=== PATIENT | female | born 1985 ===

== ENCOUNTER 2018-11-02 07:34 | Inpatient (IN) | payer BC ==
[2018-11-02 08:57] VITALS: BMI 27.0
[2018-11-02 09:17] LABS: SQUAMOUS EPITHIAL 9 /hpf (0-5); URINE BACTERIA RARE (<OCC); URINE BILIRUBIN NEGATIVE (NEGATIVE); URINE BLOOD NEGATIVE (NEGATIVE); URINE CLARITY Hazy (Clear); URINE COLOR Yellow (YELLOW); URINE GLUCOSE (UA) NORMAL (Normal); URINE LEUKOCYTE ESTERASE NEG Leu/uL (Negative); URINE PROTEIN NEGATIVE (NEGATIVE); URINE UROBILINOGEN NORMAL mg/dL (0.2-1.0)
[2018-11-02] MEDS ORDERED: Sodium Citrate/Citric Acid 15 ml Sol PO ONE (09:17)
[2018-11-02] MEDS ORDERED: ceFAZolin 2 GM in Sodium Chloride 0.9% 100 ML IVPB ONE (09:17)
[2018-11-02] MEDS ORDERED: Lactated Ringer's 1,000 ML IV ONE (09:17)
[2018-11-02] MEDS ORDERED: Morphine 1 mg/ml preservative-free Inj(Duramorph) ONE (09:53)
[2018-11-02] MEDS ORDERED: EPINEPHrine 1 mg/ml (1:1000) Inj ONE (09:54)
[2018-11-02] MEDS ORDERED: Bupivacaine HCl 15 mg/2 ml Spinal Inj ONE (09:55)
[2018-11-02 10:14] LABS: BASO % 0.3 % (0.0-2.0); EOS % 0.4 % (0.0-4.0); HEMOGLOBIN 11.7 g/dL (11.0-16.0); LYMPH # 1.4 K/uL (1.0-4.3); LYMPH % 20.2 % (20.0-40.0); MEAN CELL VOLUME 90.3 fL (81.0-99.0); MEAN CORPUSCULAR HGB CONC 34.3 g/dL (33.0-37.0); MEAN PLATELET VOLUME 10.4 fL (7.2-11.7); MONO # 0.5 K/uL (0.0-0.8); MONO % 7.3 % (0.0-10.0); NEUT # 4.9 K/uL (1.8-7.0); NEUT % 71.8 % (50.0-75.0); NRBC % 0.1 % (0.0-2.0); RBC 3.77 Mil/uL (3.80-5.20); RED CELL DISTRIBUTION WIDTH 14.6 % (11.5-14.5); WHITE BLOOD COUNT 6.8 K/uL (4.8-10.8)
[2018-11-02] MEDS ORDERED: Oxytocin 10 Units/ml Inj ONE (10:15)
[2018-11-02] MEDS ORDERED: Oxytocin 20 units in LR 2,000 ML IV ONE (10:15)
[2018-11-02] MEDS: Lactated Ringer's 1,000 ML IV SCH ×2 (10:19→21:56)
[2018-11-02] MEDS ORDERED: ceFAZolin 1 gm FROZEN Premix 2 GM/100 ML ML IVPB ONE (10:19)
[2018-11-02] MEDS ORDERED: ePHEDrine 50 mg/ml Inj ONE (11:04)
[2018-11-02] MEDS ORDERED: HYDROmorphone 0.5 mg/0.5 ml ISec IVP PRN (12:11)
[2018-11-02] MEDS ORDERED: Oxytocin 30 UNIT 500 ML IV ONE (12:20)
--- NOTE | 2018-11-02 12:44 | OBHP ---
Datetime: 11/02/2018 10:14 IP Adm Impression: Term, intrauterine ; No Active Labor; Intact Membranes IP Admit Plan: Initiate Section protocol Admit Comment, IP Provider: SUBJECTIVE: 33 year old Amharic speaking female, [id number] with and IUP at 39.3 weeks with an BISHOP of 11/10/2018 as per 2nd/3rd trimester US (performed on 07/24/19), as per records fro [facility]. Presents to [facility] for section and tubal ligation according to [facility] records. She reports movement, but denied vaginal bleeding, leakage of fluid, and contractions. She began receiving care a t 20 weeks at [facility] in June 2018. She was found to have a positive PPD, and was re commended to have CXR performed but patient states not done. In addition, she was started on vitamins and iron. US showed dilated rectum at 26 weeks; pt was referred to genetic geraldo jacques for further evaluation. Shake Maker recommended amniocentesis to rule out Hirschsprung and t risomies, however patient refused. Patient was last seen on 10/24/2018, during which time she was hilario d that section was scheduled for 11/02/18 Denies N/V/D, CP, SOB, fever, chills.She denies any other complaints at this time. records obtained from [facility]. MANAGER MOBILE hx: Age of 1st menarche: 10 Cycle is every 28 days, lasting 9 days. Menses are irregular No hx of fibroids or cysts PMHx: Hx of + Chlamydia in 2016 PSHx: section (2011), elective x1 Social Hx: Denies drug, tobacco, and alcohol use No known drug allergies Medications: vitamins, iron OBJECTIVE: Fundal height as expected for gestational age, other normal exam findings as above NST reactive Occasional contractions recorded Pt is Jehova's Witness and adamantly declines any blood products ASSESSEMENT: 1. 33 [id number] at 39.3 wks presents for elective repeat c/s. 2. All 3rd Trimester labs done and verified 3. Pt had requested Permanent steilization but now declines it 4. GBS Negtive 5. Blood type O+ PLAN: Initiate protocol Pre-op orders of Ancef, Pepcid, Bicitra placed Procedure, risks and possible complications fully reviewed with patient and she verbalized underst anding, signed the consent and requested to proceed. Anesthesia and OR notified and will proceed. Pre-op H/H noted to be 11.7/34.1 Patient seen, examined, and plan discussed with Dr. Jay Hope, DO, PGY-1 Attestation> I personally saw and examined this patient with Dr. Hope. We discussed her diagn osis, findings and treatment and completely agreed with his written description. Extremities - PN: Normal Abdomen - PN: Normal Back - PN: Normal Breast - PN: Not Done Lungs - PN: Normal Heart - PN: Normal Thyroid - PN: Normal Neurologic - PN: Normal HEENT - PN: Normal General - PN: Normal FHR - Baseline A Provider: 130 Membranes, Provider: Intact Gestation - Est Wks by US: 39.3 IP Hx Assessment: The History has been Reviewed and is Current EGA AdmitDate IP: 39.3 Vital Signs Provider: Reviewed; Within Normal Limits IP Chief Complaint: Scheduled Section NICHD Variability Prov Fetus A: Moderate 6-25bpm NICHD Accel Fetus A IP Provider: 10X10 FHR Category Provider Fetus A: Category I NICHD Decel Fetus A IP Provider: None Genitourinary Exam: Normal
[2018-11-02] MEDS ORDERED: Oxytocin 30 UNIT 30 UNITS/500 ML BAG IV ONE (13:00)
--- NOTE | 2018-11-02 13:07 | OBDS ---
DELIVERY PERSONNEL Delivery Doctor: Dr Thompson Scrub Nurse: Agnieszka Swartz Digital Campaign Specialist: Dilia Robles RN Anesthesiologist: Dr Root MATERNAL INFORMATION Delivery Anesthesia: Spinal Medications in Delivery: 40 units of pitocin, 0.2 mg methergine Estimated Blood Loss (ml): 600 Placenta Cultured: Yes Maternal Complications: None RN Comments: repeat q-[id number] male , 9/9, 40 units of pitocin and 0.2 mg Provider Comments: Repeat LTC Section with delivery of a viable Male from ALEX posit ion and without complications. Apgars 9_9 and BW 8lbs, 2oz. Mild Uterine atony that ressolved with in creased Pitocin infusion and one dose of Methergine IM. Cord blood and cord pH were obtained and sent Placenta was noted to have 3 vessel cord and was sent to Pathology. EBL 600 mls Bilateral tubes and ovaries WNL and no gross Pathology noted Dr. Ponce was the Port Surveyor in the OR Pt and both tolerated the procedure well and remained in the OR in stable and satisfactory condition. LABOR SUMMARY EDC: 11/06/2018 00:00 No. Babies in Womb: 1 Attempted: No Labor Anesthesia: spinal LABOR INFORMATION Group B Beta Strep: Negative Steroids Given: None Reason Steroids Not Administered: Not Applicable MEMBRANES Membranes Rupture Method: Artificial Rupture of Membranes: 11/02/2018 11:13 Length of Rupture (hrs): 0.02 Amniotic Fluid Color: Clear Amniotic Fluid Amount: Moderate Amniotic Fluid Odor: None STAGES OF LABOR Stage 3 hrs: 0 Stage 3 min: 2 CSECTION DELIVERY Secondary Indication: Repeat Elective CSection Urgency: Elective CSection Incidence: Repeat Labor: No Labor Elective: Elective CSection Incision: Lower Uterine Transverse BABY A INFORMATION Delivery Date/Time: 11/02/2018 11:14 Method of Delivery: Born in Route : No : N/A Forceps: N/A Vacuum Extraction: N/A Shoulder Dystocia : No SHOULDER DYSTOCIA BABY A Infant Delivery Date/Time: 11/02/2018 11:14 PRESENTATION/POSITION BABY A Presentation: Cephalic Cephalic Presentation: Vertex Vertex Position: Right Occipital Anterior Breech Presentation: N/A PLACENTA INFORMATION BABY A Placenta Delivery Time : 11/02/2018 11:16 Placenta Method of Delivery: Manual Removal Placenta Status: Delivered SCORES BABY A Heart Rate 1 min: >100 bpm Resp Effort 1 min: Good Cry Reflex Irritability 1 min: Cough or Sneeze or Pulls Away Muscle Tone 1 min: Active Motion Color 1 min: Body [place], Extremities Blue Resuscitation Effort 1 min: Tactile Stimulation SCORE 1 MIN: 9 Heart Rate 5 min: >100 bpm Resp Effort 5 min: Good Cry Reflex Irritability 5 min: Cough or Sneeze or Pulls Away Muscle Tone 5 min: Active Motion Color 5 min: Body [place], Extremities Blue Resuscitation Effort 5 min: N/A SCORE 5 MIN: 9 INFANT INFORMATION BABY A Gestational Age at Delivery: 39.3 Gestational Status: Term Outcome : Liveborn Infant Condition : Stable Infant Sex: Male IDENTIFICATION/MEDS BABY A ID Band Number: [id number] ID Band Location: Left Leg; Left Arm Sensor Applied: Yes Sensor Number: [id number] Sensor Location : Cord Clamp Vitamin K Given : Not Given Erythromycin Given: Not Given WEIGHT/LENGTH BABY A Birthweight (gms): 3695 Weight (lb): 8 Weight (oz): 2 Length Inches: 19.75 Infant Length cms: 50.2 CORD INFORMATION BABY A Nuchal Cord : N/A Cord Blood Taken: Yes Suction: Mouth; Nose ASSESSMENT BABY A Complications: None Physical Findings at Delivery: Within Normal Limits Respirations: Appears Normal Pinking Machine Operator/ALS Called : No Care By: Rex Vee RN, Dr Ponce Transferred To: Remains with Mother
[2018-11-02] MEDS: Oxycodone/Acetaminophen 5/325 mg Tab PO PRN (20:03)
[2018-11-03] MEDS: Oxycodone/Acetaminophen 5/325 mg Tab PO PRN ×4 (04:39→22:11)
[2018-11-03] MEDS: Lactated Ringer's 1,000 ML IV SCH (04:47)
[2018-11-03 07:42] LABS: HEMOGLOBIN 9.9 g/dL (11.0-16.0); MEAN CELL VOLUME 90.9 fL (81.0-99.0); MEAN CORPUSCULAR HEMOGLOBIN 31.2 pg (27.0-31.0); MEAN CORPUSCULAR HGB CONC 34.4 g/dL (33.0-37.0); MEAN PLATELET VOLUME 9.8 fL (7.2-11.7); RBC 3.17 Mil/uL (3.80-5.20); RED CELL DISTRIBUTION WIDTH 14.8 % (11.5-14.5); WHITE BLOOD COUNT 9.7 K/uL (4.8-10.8)
[2018-11-03] MEDS: Prenatal Multivit/Folic Acid/Iron Tab PO SCH (09:09)
[2018-11-03 23:58] VITALS: RESP 18
[2018-11-04] MEDS: Oxycodone/Acetaminophen 5/325 mg Tab PO PRN ×3 (03:20→22:13)
[2018-11-04 09:38] VITALS: O2SAT 99
[2018-11-04] MEDS: Prenatal Multivit/Folic Acid/Iron Tab PO SCH (10:40)
--- NOTE | 2018-11-04 12:57 | OBPPN ---
Datetime: 11/04/2018 12:53 PP Pain Prov: Within normal limits PP Flatus Prov: Yes PP BM Prov: No PP C/S Incision Prov: Normal PP Progress Prov: Abnormal PP Impression Prov: Normal progression PP Progress Note Prov: A/P: s/p CS POD#2 - stable, afebrile -+BS, +flauts, - BM - encourage ambulation - pt c/o difficulty - s/p cassandra consultant - continue post op care Vital Signs Provider PP: Reviewed
--- NOTE | 2018-11-05 09:10 | OP ---
PROCEDURE DATE: 11/02/2017 PREOPERATIVE DIAGNOSES: 1. Intrauterine at 39.3 weeks. 2. Previous section x1. 3. For elective repeat section. POSTOPERATIVE DIAGNOSES: 1. Intrauterine at 39.3 weeks. 2. Previous section x1. 3. For elective repeat section. 4. Mild uterine atony that resolved with increased Pitocin infusion and one dose of Methergine intramuscular. PROCEDURE: Repeat low transverse cervical section with delivery of a viable male from the ALEX position and without complications. The Apgars were 9 and 9 at one and five minutes respectively and a weight of 8 pounds 2 ounces. SURGEON: Dee Dee Thompson DO. PROJECT MGR: Benjamin Talbot MD. TYPE OF ANESTHESIA: Spinal. ANESTHESIA ADMINISTERED BY: Carl Root MD. TRANSMISSION SPECIALIST: Nan Ponce MD. INDICATIONS FOR SURGERY: As I stated above, the patient had a term with a history of previous section and had requested having an elective repeat section. FINDINGS: Bilateral tubes and ovaries were within normal limits. The uterus was also within normal limits and there was no other gross pathology. ESTIMATED BLOOD LOSS: 600 mL. SPECIMEN: Cord blood and cord pH obtained and sent. Placenta noted to have 2 vessels, coded and sent to Pathology. COMPLICATIONS: None. PREOPERATIVE NOTE: The procedure, the risks and the possible complications were fully reviewed with the patient to include but not exclusively hemorrhage, infection or injury to bowel, bladder, bilateral tubes and ovaries, internal blood vessels or any other internal organs. The patient verbalized understanding and requested to proceed and signed the consent. DESCRIPTION OF PROCEDURE: The patient was taken to the operating room and she was given a spinal form of anesthesia. She was sterilely prepped and draped in the usual manner for the above-named procedure. The time-out was then carried out as indicated and we initiated the procedure. After ascertaining an adequate level of anesthesia, the knife was utilized to make a low transverse skin incision following the previous scar and utilizing the Pfannenstiel technique, the abdomen was entered. The peritoneum was identified and was sharply entered. Some of the adhesions were then lysed in order to gain full access to the abdominal cavity, and the bladder flap was developed with some difficulty because of the multiple adhesions. This was placed underneath the Tyler blade. The second knife was then utilized to make a low transverse uterine incision in the lower uterine segment and this was extended bilaterally in a transverse manner with bandage scissors. The membranes were ruptured with return of clear fluid and the was then delivered from the MARÍA ELE[place] position. The bulb syringe was utilized to suction the naso and the oropharynx upon delivery of the head and upon completion of the delivery, which was carried out without difficulty. The cord was doubly clamped and transected, and the infant was passed to the plate painter apprentice in attendance for further inspection. The cord blood and cord pH were obtained and sent. The placenta was spontaneously delivered and sent to Pathology. The uterus was exteriorized through the abdominal incision after lysing somewhat of the adhesions, and the endometrial cavity was cleansed with a moist lap, and the uterine incision was closed utilizing 0 PDS suture in a full-thickness manner with an adequate closure and adequate hemostasis. The cul-de-sac was cleansed of blood clots, and the uterus was repositioned in the abdominal cavity. Bilateral gutters were also cleansed, and after ascertaining adequate hemostasis at the uterine incision, we proceeded to close the abdomen in layers. The rectus muscle was reapproximated in the midline with a few interrupted sutures of 0 Vicryl and incorporating the peritoneum. The fascia was closed with 0 PDS and the skin was closed with the isabela. The sterile dressing was applied, and after evacuating the vaginal blood clots, the procedure was terminated. All the instruments and sponges were accounted for x3, and the patient and the both tolerated the procedure well and they both left the operating room in a stable and satisfactory condition. Dee Dee Thompson DO
[2018-11-05] MEDS: Prenatal Multivit/Folic Acid/Iron Tab PO SCH (09:47)
[2018-11-05] MEDS ORDERED: Influenza Vaccine 60 mcg/0.5 mL SYR (4YR UP) IM ONE (11:33)
--- NOTE | 2018-11-05 16:59 | OBPPN ---
Datetime: 11/05/2018 08:09 PP Pain Prov: Within normal limits PP Nausea Prov: Denies PP Flatus Prov: Yes PP BM Prov: Yes PP Heart Prov: Normal PP Lungs Prov: Normal PP Abdomen/Uterus Prov: Normal PP Lochia Prov: Normal PP Vulva/Perineum Prov: Not Done PP Extremities Prov: Normal PP C/S Incision Prov: Normal PP Progress Prov: Normal PP Comments Phys Exam Prov: Lungs: CTA b/l Cardio: RRR, no murmurs appreciated Abd: + BS in all 4 quadrants, tender at incision site 5/10 Abd incision with bandage, c/d/i Extremities : no calf tenderness PP Impression Prov: Normal progression PP Plan Prov: Discharge PP Progress Note Prov: A_ P: Ms. Nguyễn Hoyos is a 33 year old female PPD #3 s/p . Baby boy has been circumcis ed. 1. Stable 2. Encourage breast-feeding, consult recommendations appreciated. Patient was educated r egarding 20-25 minute feeding on each each breast every _2 hours. 3. Encourage ambulation 4. Pain presently controlled on Motrin 5. Discharge planning for today on Motrin, Colace and Feosol. 6. Followup appointment in 1 week. Case discussed with attending, Dr. [place]. Anjel Giraldo, PGY-1 Attending Note: I agree with the above as documented. Patient is clinically stable. Assessment and plan as above IP PP Procedures: None
--- NOTE | 2018-11-05 16:59 | OBDCSUM ---
Datetime: 11/05/2018 10:05 Discharged to, Provider: Home Follow up at, Provider: [facility] Low Instr Activity: Normal activity Disch Instr Diet: Regular Discharge Diagnosis, Provider: Term Delivered Discharge Time: 11/05/2018 11:00 Follow up in weeks, Provider: 11-09-18 Disch Referrals: None Contraception discussed, Prov: No Disch Activity Restrictions: No lifting; Minimize stair-climbing; No sexual activity; Nothing in vag jd - Relampago, tampons, douche Discharge Diagnosis Prov Other: Status post repeat LTCS Acute blood loss aneima
[2018-11-05 17:14] VITALS: BP 108/71; PULSE 85; TEMP 97.1
--- NOTE | 2018-11-06 11:28 | OBPPN ---
Datetime: 11/03/2018 18:18 PP Pain Prov: Within normal limits PP Nausea Prov: Denies PP Flatus Prov: Yes PP BM Prov: No PP Breasts Prov: Not Done PP Heart Prov: Normal PP Lungs Prov: Normal PP Abdomen/Uterus Prov: Normal PP Lochia Prov: Normal PP Vulva/Perineum Prov: Normal PP CVA Tenderness Prov: Normal PP Extremities Prov: Normal PP C/S Incision Prov: Normal PP Progress Prov: Normal PP Comments Phys Exam Prov: Fundus firm, below umbilicus and minimally tender Incision clean, dry and intact PP Impression Prov: Normal progression PP Plan Prov: Continue present management PP Progress Note Prov: Pt seen and examined. No complaints POD # 1 S/P Repeat C/S PP H_H 9.9/28.8/ Asymptomatic Tolerating diet well but not drinking enough water attempted but supplementing with Bottlefeeding Stable and Satisfactory condition and recovery Encourage to increase po water intake, Ambulate in hallways and will order consultation. Advance care IP PP Procedures: None Vital Signs Provider PP: Reviewed; Within Normal Limits
== END 2018-11-05 11:00 | disposition home or self-care (01) | DRG 788 ==
LOC: C.EROB 07:34 → C.4D 09:20 → C.4M 15:37
PROVIDERS: ADMIT Obstetrics & Gynecology; ATTEND Obstetrics & Gynecology
PROC: 10D00Z1 Extraction of Products of Conception, Low, Open Approach (ICD-10-PCS; principal; 2018-11-02)
PROC: 3E033VJ Introduction of Other Hormone into Peripheral Vein, Percutaneous Approach (ICD-10-PCS; 2018-11-02)
DX: O34.211 Maternal care for low transverse scar from previous cesarean delivery (principal); Z3A.39 39 weeks gestation of pregnancy; Z37.0 Single live birth; O62.2 Other uterine inertia

== ENCOUNTER 2018-11-08 12:48 | Inpatient (IN) | payer BC | END 2018-11-10 10:40 | disposition home or self-care (01) | LOC: C.ER 12:48 → C.4M 21:55 ==